=== PATIENT | female | born 1995 | race African-American/Black ===

== ENCOUNTER 2020-03-21 07:37 | Emergency (ER) | payer OTHER ==
[~2020-03-21] VITALS: Ht 162.6 cm; Wt 65.8 kg
[2020-03-21 08:58] VITALS: BP 116/58
== END 2020-03-21 08:58 | disposition home or self-care (01) ==
LOC: ER 07:37
DX: O9A.213 Injury, poisoning and certain other consequences of external causes complicating pregnancy, third trimester (principal); S93.401A Sprain of unspecified ligament of right ankle, initial encounter; Z3A.00 Weeks of gestation of pregnancy not specified; W10.9XXA Fall (on) (from) unspecified stairs and steps, initial encounter; Y93.89 Activity, other specified; Y92.89 Other specified places as the place of occurrence of the external cause; Y99.8 Other external cause status